=== PATIENT | male | born 1955 | race Caucasian/White ===

== ENCOUNTER 2016-12-12 18:12 | Emergency (ER) | payer BC ==
[~2016-12-12] VITALS: Ht 180.3 cm; Wt 77.2 kg
[~2016-12-12 18:12] MED LIST: CEPH500C PO; CLR10 PO
[2016-12-12 18:22] VITALS: TEMP 36.5; Ht 180.3 cm; Wt 77.2 kg
[2016-12-12 19:06] LABS: BASO % 0.5 %; BASO ABS # 0.03 K/uL (0-0.2); COMPLETE YES; EOS % 2.7 %; HEMATOCRIT 44.4 % (42-52); IG% 0.3 %; LYMPH % 19.6 %; MEAN CELL VOLUME 92.9 fL (80-100); MEAN CORPUSCULAR HEMOGLOBIN 32.2 pg (25-34); MEAN CORPUSCULAR HGB CONC 34.7 g/dl (32-36); MEAN PLATELET VOLUME 9.6 fL (7.4-10.4); MONO % 6.6 %; NEUT % 70.3 %; PLATELET COUNT 218 K/uL (130-400); RED BLOOD COUNT 4.78 M/uL (4.7-6.1); WHITE BLOOD COUNT 6.63 K/uL (4.8-10.8)
[2016-12-12 19:18] LABS: BUN/CREATININE RATIO 16.6 (10-20); CALCIUM 8.6 mg/dl (8.5-10.1); CREATININE 0.76 mg/dl (0.60-1.40); POTASSIUM 3.7 mmol/L (3.5-5.1)
[2016-12-12 19:20] LABS: INR 1.1 (0.9-1.1); PARTIAL THROMBOPLASTIN RATIO 1.1; PROTHROMBIN TIME (PATIENT) 11.5 SECONDS (9.0-12.0)
[2016-12-12 19:21] LABS: ALB/GLOB RATIO 1.4 (0.9-2)
--- NOTE | 2016-12-12 19:25 | DIAGNOSTIC IMAGING REPORT ---
RIGHT LOWER EXTREMITY VENOUS DOPPLER HISTORY: Right leg edema. COMPARISON STUDY: None. FINDINGS: There is normal compressibility, flow, and augmentation within the right lower extremity deep venous system. There is a thrombosed superficial vein within the mid to distal medial calf. IMPRESSION: No DVT within the right lower extremity . Thrombosed superficial vein within the medial calf. Electronically signed by: Víctor London M.D. 12/12/2016 7:24 PM Dictated Date/Time: 12/12/2016 7:23 PM
[2016-12-12] MEDS ORDERED: OMEG10007 PO (19:54)
[2016-12-12] MEDS ORDERED: ASPI81TA28 PO (19:54)
[2016-12-12] MEDS ORDERED: MULT-190 PO (19:54)
[2016-12-12 20:31] VITALS: BP 105/64
[2016-12-12] MEDS ORDERED: ENOXAPARIN 80 MG/0.8 ML SYR SQ ONE ×2 (20:45)
[2016-12-12] MEDS ORDERED: ENOX1INJ11 SQ (20:49)
--- NOTE | 2016-12-12 20:58 | EMERGENCY ROOM VISIT NOTE ---
History Report prepared by Omaira: Yassine Suarez Under the Supervision of: Dr. Khalif Yang M.D. First contact with patient: 18:29 Chief Complaint: LEG PAIN,LEG INJURY Stated Complaint: POSSIBLE BLOOD CLOT RIGHT LEG History of Present Illness The patient is a 61 year old male with a history of Factor 5 Leiden who presents to the Emergency Room with complaints of persistent right lower leg pain that started yesterday. He states that he had a blood clot in his right leg several years ago, and was diagnosed with the Factor 5 afterward. The patient says that he was put on Coumadin for 6 months, but is not on any blood thinners anymore. The patient saw Dr. Lee of [facility] hematology. He states that yesterday he started noticing some pain as well as bruising in the right lower leg. He adds that earlier today, the leg started to get red with some streaking. He notes that he did not bump the right leg. The patient denies any recent long car or plane trips. Pt denies LOC, headache, fevers, chills, diaphoresis, visual changes, neck pain, chest pain, breathing difficulties, nausea, vomiting, abdominal pain, back pain, melena, hematochezia, urinary symptoms, numbness, weakness, lymphadenopathy, rash, or other complaints. Source of History: patient Onset: Yesterday Position: leg (right lower) Quality: other (pain, swelling, redness, bruising) Timing: other (persistent) Note: No associated symptoms noted. Review of Systems See HPI for pertinent positives and negatives. A total of ten systems were reviewed and were otherwise negative. Past Medical & Surgical Medical Problems: (1) Factor 5 Leiden mutation, heterozygous Surgical Problems: (1) History of colon resection No chronic diseases present Family History Diabetes mellitus Social History Smoking Status: Never Smoker Alcohol Use: occasionally Marital Status: Occupation Status: employed Current/Historical Medications Scheduled Aspirin (Aspirin Ec), 81 MG PO DAILY Enoxaparin Sodium (Lovenox), 80 MG SQ Q12 Fish Oil ([place]-3), 1 CAP PO DAILY Ocuvite Preservision (Ocuvite Preservision), 1 TAB PO DAILY Allergies Coded Allergies: Diazepam (Verified Allergy, Severe, HYPER, 12/12/16) Benzodiazepines (Verified Allergy, Unknown, HYPER, 12/12/16) Indomethacin (Verified Adverse Reaction, Unknown, DIZZY, 12/12/16) Physical Exam Vital Signs Date Time Temp Pulse Resp B/P (MAP) Pulse Ox O2 Delivery O2 Flow Rate FiO2 12/12/16 20:31 50 16 105/64 97 Room Air 12/12/16 18:22 36.5 59 16 126/84 97 Room Air Physical Exam GENERAL: Awake, alert, well-appearing, in no distress HENT: Normocephalic, atraumatic. Oropharynx unremarkable. EYES: Normal conjunctiva. Sclera non-icteric. NECK: Supple. No nuchal rigidity. FROM. No JVD. RESPIRATORY: Clear to auscultation. CARDIAC: Regular rate, normal rhythm. Extremities warm and well perfused. Pulses equal. ABDOMEN: Soft, non-distended. No tenderness to palpation. No rebound or guarding. No masses. RECTAL: Deferred. MUSCULOSKELETAL: Chest examination reveals no tenderness. The back is symmetrical on inspection without obvious abnormality. There is no CVA tenderness to palpation. No joint edema. LOWER EXTREMITIES: Right leg is erythematous on distal medial aspect with red streaking going up the medial leg following the saphenous vein. NEURO: Normal sensorium. No sensory or motor deficits noted. SKIN: No rash or jaundice noted. Medical Decision & Procedures ER Provider Diagnostic Interpretation: US: Radiology results as stated below per my review and radiologist interpretation RIGHT LOWER EXTREMITY VENOUS DOPPLER HISTORY: Right leg edema. COMPARISON STUDY: None. FINDINGS: There is normal compressibility, flow, and augmentation within the right lower extremity deep venous system. There is a thrombosed superficial vein within the mid to distal medial calf. IMPRESSION: No DVT within the right lower extremity . Thrombosed superficial vein within the medial calf. Electronically signed by: Víctor London M.D. 12/12/2016 7:24 PM Dictated Date/Time: 12/12/2016 7:23 PM Laboratory Results 12/12/16 18:50 Red Blood Count 4.78, Mean Corpuscular Volume 92.9, Mean Corpuscular Hemoglobin 32.2, Mean Corpuscular Hemoglobin Concent 34.7, Mean Platelet Volume 9.6, Neutrophils (%) (Auto) 70.3, Lymphocytes (%) (Auto) 19.6, Monocytes (%) (Auto) 6.6, Eosinophils (%) (Auto) 2.7, Basophils (%) (Auto) 0.5, Neutrophils # (Auto) 4.66, Lymphocytes # (Auto) 1.30, Monocytes # (Auto) 0.44, Eosinophils # (Auto) 0.18, Basophils # (Auto) 0.03 12/12/16 18:50 Test 12/12/16 18:50 White Blood Count 6.63 K/uL (4.8-10.8) Red Blood Count 4.78 M/uL (4.7-6.1) Hemoglobin 15.4 g/dL (14.0-18.0) Hematocrit 44.4 % (42-52) Mean Corpuscular Volume 92.9 fL (80-100) Mean Corpuscular Hemoglobin 32.2 pg (25-34) Mean Corpuscular Hemoglobin Concent 34.7 g/dl (32-36) Platelet Count 218 K/uL (130-400) Mean Platelet Volume 9.6 fL (7.4-10.4) Neutrophils (%) (Auto) 70.3 % Lymphocytes (%) (Auto) 19.6 % Monocytes (%) (Auto) 6.6 % Eosinophils (%) (Auto) 2.7 % Basophils (%) (Auto) 0.5 % Neutrophils # (Auto) 4.66 K/uL (1.4-6.5) Lymphocytes # (Auto) 1.30 K/uL (1.2-3.4) Monocytes # (Auto) 0.44 K/uL (0.11-0.59) Eosinophils # (Auto) 0.18 K/uL (0-0.5) Basophils # (Auto) 0.03 K/uL (0-0.2) RDW Standard Deviation 44.8 fL (36.4-46.3) RDW Coefficient of Variation 13.1 % (11.5-14.5) Immature Granulocyte % (Auto) 0.3 % Immature Granulocyte # (Auto) 0.02 K/uL (0.00-0.02) Prothrombin Time 11.5 SECONDS (9.0-12.0) Prothromb Time International Ratio 1.1 (0.9-1.1) Activated Partial Thromboplast Time 27.5 SECONDS (21.0-31.0) Partial Thromboplastin Ratio 1.1 Anion Gap 6.0 mmol/L (3-11) Est Creatinine Clear Calc Drug Dose 105.9 ml/min Estimated GFR () 112.5 Estimated GFR (Non- 97.1 BUN/Creatinine Ratio 16.6 (10-20) Calcium Level 8.6 mg/dl (8.5-10.1) Total Bilirubin 0.7 mg/dl (0.2-1) Aspartate Amino Transf (AST/SGOT) 19 U/L (15-37) Alanine Aminotransferase (ALT/SGPT) 24 U/L (12-78) Alkaline Phosphatase 58 U/L (45-117) Total Protein 6.6 gm/dl (6.4-8.2) Albumin 3.8 gm/dl (3.4-5.0) Globulin 2.8 gm/dl (2.5-4.0) Albumin/Globulin Ratio 1.4 (0.9-2) Laboratory results reviewed by [facility] ED Course 1835: The patient was evaluated in room C2B. A complete history and physical exam was performed. 2006: I reevaluated and updated the patient. 2033: I discussed the patient with Dr. Perez [facility]. 2039: Discussed the treatment options with the patient. He is comfortable with Lovenox. First dose ordered. Morning dose ordered as well. Prescription sent to his pharmacy. Medical Decision Triage Nursing notes reviewed and agree them. The patient's history was concerning for swelling and pain in the leg. Differential diagnosis: Etiologies such as superficial thrombophlebitis, DVT, infection, trauma, muscular, lymphedema, idiopathic,as well as others were entertained.. Physical examination: The physical examination revealed no signs of infection. Neurovascularly intact. ER treatment provided: Lovenox 80 mg subcutaneous Diagnostics interpreted by me: The labs revealed an unremarkable cbc and chem panel. Imaging studies: Ultrasound as above Consultation: A consultation was placed with the mail weigher on-call, Dr. Perez. Case was discussed. She recommended anticoagulation with Lovenox and following up in the office for further determination regarding his ongoing treatment. The patient has a sizable superficial thrombophlebitis. This is greater than 5 cm and is clear on physical examination. Ultrasound confirmed. The patient will need treatment but his history of factor V and prior DVT due complicate the issue. Close follow-up with hematology will be necessary. The patient feels comfortable with Lovenox injections. 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 Nursing did administer the first dose here and he was given a dose for tomorrow morning. 7 days worth of Lovenox was sent to his pharmacy which should call him over until hematology determines his necessary treatment. By the evaluation outlined above emergent etiologies such as cellulitis, trauma , infection, DVT, as well as others were deemed relatively unlikely. The patient was informed about the findings as listed above. All questions were answered and he was pleased with the treatment. Return instructions were outlined and the patient was discharged in stable condition. Outpatient prescription management: Lovenox Referral: The patient was referred back to hematology and primary care physician for follow-upfor a recheck of the current condition. Medication Reconcilliation Current Medication List: was personally reviewed by me Blood Pressure Screening Patient's blood pressure: Elevated blood pressure Blood pressure disposition: Elevated BP felt to be situational Consults Time Called: 1999 Consulting Physician: Dr. Chris Mcintyre hematology I discussed the patient with Dr. Chris Mcintyre hematology. Impression Primary Impression: Superficial thrombophlebitis Scribe Attestation The scribe's documentation has been prepared under my direction and personally reviewed by me in its entirety. I confirm that the note above accurately reflects all work, treatment, procedures, and medical decision making performed by me. Departure Information Dispostion Home / Self-Care Prescriptions Enoxaparin Sodium (LOVENOX) 80 Mg/0.8 Ml Inj 80 MG SQ Q12, #14 SYR Prov: Khalif Yang MD 12/12/16 Referrals No Doctor, Assigned (PCP) Patient Instructions My [facility] Additional Instructions Lovenox 80 mg injection twice daily as instructed. Continue until directed otherwise by hematology. It is important to follow up with hematology tomorrow at the number listed below under Dr. Lee for further direction as your case is complicated by the factor V. Review the package insert for all your medications. This is necessary as important health information is provided for your benefit and current care. Acetaminophen(Tylenol) may be used for fever or pain. Use 1000mg every six hours as needed. Avoid using more than 4000mg in a 24 hour period. Warm compresses to the affected area 4 times daily for 15-20 minutes. Rest and drink plenty of fluids. Continue current medications. Return to the ER for chest pain, difficulty breathing, increased leg swelling, severe pain, persistent fevers, spreading redness, or any worsening of your condition. Follow up with your primary physician first thing next week for a recheck of the current condition.
[2016-12-12 21:12] VITALS: PULSE 52; O2SAT 100
== END 2016-12-12 21:14 | disposition home or self-care (01) ==
LOC: C.EDB 18:13 → C.EDC 21:14
DX: I80.01 Phlebitis and thrombophlebitis of superficial vessels of right lower extremity (principal); D68.51 Activated protein C resistance; Z83.3 Family history of diabetes mellitus; Z79.82 Long term (current) use of aspirin

== ENCOUNTER → 2017-01-01 | Outpatient (CLI) | payer BC ==
[~2017-01-01] MED LIST changes: +ASPI81TA28 PO; -CEPH500C PO; -CLR10 PO; +ENOX1INJ11 SQ; +MULT-190 PO; +OMEG10007 PO
--- NOTE | 2017-01-01 13:02 | DIAGNOSTIC IMAGING REPORT ---
BILATERAL LOWER EXTREMITY VENOUS DOPPLER HISTORY: History of superficial venous thrombosis of the medial calf. HETEROZYGOUS FACTOR V, VENUOUS THROMBOSIS RT LOWER LIMB COMPARISON STUDY: DVT study 12/12/2016. FINDINGS: There is normal compressibility, flow, and augmentation within the right lower extremity deep venous system. Superficial venous thrombosis of the mid to distal medial right calf is again seen. IMPRESSION: 1. No sonographic evidence of deep venous thrombosis within the right lower extremity. 2. Redemonstration of superficial venous thrombosis of the mid to distal medial right calf. Electronically signed by: Michael Childs M.D. 01/01/2017 1:00 PM Dictated Date/Time: 01/01/2017 12:58 PM
== END | disposition home or self-care (01) ==
LOC: C.ULTR 12:27
PROVIDERS: ATTEND Internal Medicine Hematology & Oncology
DX: I82.811 Embolism and thrombosis of superficial veins of right lower extremity (principal); D68.51 Activated protein C resistance

== ENCOUNTER → 2017-02-24 | Outpatient (CLI) | payer BC ==
--- NOTE | 2017-02-24 09:56 | DIAGNOSTIC IMAGING REPORT ---
ULTRASOUND RIGHT LOWER EXTREMITY VENOUS CLINICAL HISTORY: Follow-up right lower extremity thrombus. COMPARISON STUDY: Right lower extremity venous ultrasound dated 01/01/2017. TECHNIQUE: Real-time, grayscale, and color Doppler sonography of the deep veins of the right lower extremity was performed from the inguinal crease to the calf. Compression and augmentation were utilized. FINDINGS: There is no sonographic evidence of deep venous thrombosis identified in the right lower extremity. The common femoral, superficial femoral, and popliteal veins are patent and normally compressible. The greater saphenous vein and the profunda femoris vein at the junction with the common femoral vein are clear. The visualized calf veins are patent. Superficial venous thrombus is identified within the right calf. This is similar to previous. IMPRESSION: 1. There is no sonographic evidence of deep venous thrombosis identified in the right lower extremity. 2. Superficial venous thrombus in the right calf is similar to previous. Electronically signed by: Rupesh Mina M.D. 02/24/2017 9:55 AM Dictated Date/Time: 02/24/2017 9:54 AM
== END | disposition home or self-care (01) ==
LOC: C.ULTR 08:43
PROVIDERS: ATTEND Internal Medicine Hematology & Oncology
DX: Z86.718 Personal history of other venous thrombosis and embolism (principal); I82.811 Embolism and thrombosis of superficial veins of right lower extremity